=== PATIENT | female | born 1985 | race Caucasian/White ===

== ENCOUNTER 2018-02-22 15:00 | Emergency (ER) | payer BC ==
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
[2018-02-22 15:39] LABS: PLATELET COUNT 202 10^3/uL (150-400)
[2018-02-22 17:06] VITALS: BP 100/77
== END 2018-02-22 18:30 | disposition home or self-care (01) ==
DX: O20.0 Threatened abortion (principal); Z3A.01 Less than 8 weeks gestation of pregnancy